=== PATIENT | male | born 1990 | race Caucasian/White ===

== ENCOUNTER 2017-07-14 13:16 | Emergency (ER) | payer SELFPAY ==
--- NOTE | 2017-07-14 13:48 | Emergency Department Record ---
History of Present Illness - General Stated complaint: GROIN PAIN/RT TESTICLE Time Seen by Provider: 07/14/17 13:48 Source: Patient Mode of Arrival: Ambulatory Limitations: No limitations - History of Present Illness Initial comments: 27 yo male presents with right testicular pain and mild swelling for about 48 hours. No fevers. No chills. No nausea, vomiting or dysuria. No hematuria. He has tenderness posterior right testicle with mild swelling. No history of the same in the past. MD Complaint: Testicle pain -: Hour(s) (48) Location: Right testicle Radiation: None Severity: Mild Quality: Aching Consistency: Constant Improves with: None Worsens with: Palpation Reports: Denies other symptoms - Related Data Previous Rx's Medication Instructions Recorded Doxycycline Hyclate [Doxycycline] 100 mg PO BID #20 cap 07/14/17 Ibuprofen [Motrin 600Mg] 600 mg PO Q6H #20 tablet 07/14/17 Allergies Allergy/AdvReac Type Severity Reaction Status Date / Time sulfamethoxazole Allergy Intermediate HIVES Verified 07/14/17 14:16 [From Bactrim] trimethoprim [From Bactrim] Allergy Intermediate HIVES Verified 07/14/17 14:16 Review of Systems Constitutional: Denies: Chills, Fever, Malaise, Weakness Eyes: Denies: Eye discharge, Eye pain, Photophobia, Vision change ENT: Denies: Congestion, Throat pain Respiratory: Denies: Cough Cardiovascular: Denies: Chest pain, Syncope Gastrointestinal: Denies: Abdominal pain, Diarrhea, Nausea, Vomiting Genitourinary: Reports: As per HPI, Testicular pain. Denies: Dysuria, Frequency , Hematuria Musculoskeletal: Denies: Arthralgia, Back pain, Neck pain Skin: Denies: Bruising, Change in color, Rash Neurological: Denies: Headache, Numbness, Weakness Psychiatric: Denies: Anxiety Hematological/Lymphatic: Denies: Blood Clots, Easy bleeding, Easy bruising, Swollen glands Physical Exam - General General Appearance: Alert, Oriented x3, Cooperative, No acute distress Limitations: No limitations - Head Head exam: Atraumatic, Normal inspection - Eye Eye exam: Normal appearance. negative: Conjunctival injection, Scleral icterus - ENT ENT exam: Normal exam Ear exam: Normal external inspection Nasal Exam: Normal inspection Mouth exam: Normal external inspection - Neck Neck exam: Normal inspection, Full ROM. negative: Tenderness - Respiratory Respiratory exam: Normal lung sounds bilaterally. negative: Respiratory distress - GI/Abdominal GI/Abdominal exam: Soft. negative: Distended, Guarding, Hernia, Mass, Rebound, Rigid, Tenderness - Rectal Rectal exam: Deferred - exam: Circumcision, Normal inspection, Testicular tenderness (mild posterior right testicle, intact reflex, fully mobile, minimal discomfort). negative: Scrotal swelling - Extremities Extremities exam: Normal inspection - Back Back exam: Denies: CVA tenderness (R), CVA tenderness (L) - Neurological Neurological exam: Alert, Oriented X3 - Psychiatric Psychiatric exam: negative: Agitated, Anxious - Skin Skin exam: Dry, Intact, Normal color, Warm Course - Reevaluation(s) Reevaluation #1: The UA demonstrated signs of infection with LE, Bacteria, and WBC The US was consistent with mild epididymitis He was given Rocephin and Doxycycline 07/14/17 15:39 Disposition Disposition: Discharge Clinical Impression: Epididymitis Disposition: Home, Self-Care Condition: (1) Good Instructions: Epididymitis (ED) Additional Instructions: Take the antibiotics as ordered Wear supportive underwear Motrin as directed for pain Return or be seen if worse, fever, vomiting or concerns Prescriptions: Doxycycline Hyclate [Doxycycline] 100 mg PO BID #20 cap Ibuprofen [Motrin 600Mg] 600 mg PO Q6H #20 tablet Quality - Quality Measures Quality Measures: N/A - Blood Pressure Screening Does Patient Have Any of the Following: No Blood Pressure Classification: Normal BP Reading Systolic Measurement: 112 Diastolic Measurement: 73 Screening for High Blood Pressure: < Normal BP, F/U Not Required > [G8783]
[2017-07-14 14:33] LABS: URINE APPEARANCE CLEAR; URINE BILIRUBIN NEGATIVE (NEGATIVE); URINE BLOOD LARGE (NEGATIVE); URINE COLOR YELLOW; URINE GLUCOSE (UA) NEGATIVE (NEGATIVE); URINE KETONE NEGATIVE (NEGATIVE); URINE LEUKOCYTE ESTERASE MODERATE (NEGATIVE); URINE NITRITE NEGATIVE (NEGATIVE); URINE PROTEIN TRACE (NEGATIVE); URINE UROBILINOGEN 0.2 E.U./dL (0.20 - 1.00)
[2017-07-14 14:50] LABS: URINE RBC 16 - 25 (NONE SEEN)
[2017-07-14 14:51] LABS: URINE BACTERIA NONE SEEN; URINE SPERM 1+
[2017-07-14] MEDS ORDERED: CEFTRIAXONE 250 MG VIAL IM ONE (15:39)
[2017-07-14] MEDS ORDERED: DOXYCYCLINE HYCLATE 100 MG CAPSULE PO ONE (15:40)
--- NOTE | 2017-07-15 09:44 | ULTRASOUND REPORT ---
EXAM: SCROTAL ULTRASOUND HISTORY: RIGHT SIDED PAIN. TECHNIQUE: Transverse and longitudinal sonographic images of the testes were obtained. Comparison: None. FINDINGS: The right testi measures 2.8 x 3.9 x 2.2 cm. The left testi measures 2.7 x 4.0 x 2.2 cm. Negative for intratesticular mass. Doppler and spectral analysis with color flow was utilized. Arterial and venous flow to both testes. Small left varicocele. Slight heterogeneity of the right epididymis with some equivocal increased flow may reflect nonspecific epididymitis. The epididymides are otherwise unremarkable. IMPRESSION: POSSIBLE MILD RIGHT SIDED EPIDIDYMITIS. FOLLOW-UP RECOMMENDED. JOB NUMBER: [id number] MTDD
== END 2017-07-14 16:23 | disposition home or self-care (01) ==
LOC: ER 13:16
DX: N45.1 Epididymitis (principal); F17.210 Nicotine dependence, cigarettes, uncomplicated
CPT/HCPCS: 99283; 96372; 99284; 81001; 76870; J0696